=== PATIENT | female | born 1965 | race Caucasian/White ===

== ENCOUNTER 2025-05-23 08:38 | Day surgery (SDC) | payer SELFPAY ==
[2025-05-23] VITALS (8 sets, daily range): BP systolic 103–132; BP diastolic 72–100; PULSE 58–69; RESP 12–16; TEMP 36.1–36.4; O2SAT 96–100; BMI 32.7
--- OUTSIDE RECORDS SUMMARY | 2025-05-23 09:02 | XMS RPT_ITS | CCD ---
Author Organization [facility] Care Team Providers Care Mental Health Worker Name Role Phone Vikram Camp Attending Unavailable Ozzie Wyatt Referring Unavailable Ozzie Wyatt Primary Care Unavailable Vikram Camp Attending Unavailable Ozzie Wyatt Primary Care Unavailable Results Test Name Value Interpretation Reference Range Facil ity Surgery Visit Reporton 04-21 Surgery Visit Report [facility] [address] [place] [address] OFFICE VISIT Date of Service: 04/21/25 MR#: [id number] Acct: [id number] Name: ROSA POSEY Rep #: [id number] : 1965 Provider: Dr. Vikram hairston MD Age/Sex: 59/F Location: [facility] Status: Signed Intake Vital Signs 04/21/25 08:33 Height 5 ft 2 in Weight: 183 lb BMI 33.5 BP 132/85 H Blood Pressure Location Rt brachial Position Sitting Respiration 16 Intake Visit Reasons: COLONOSCOPY Chief Complaint: c-scope Corporate Officer Required: No Is patient in pain?: No Allergies No Known Allergies Allergy (Unverified 04/21/25 08:34) Medications ???Medication ???Instructions ???Recorded ???Confirmed ???Type atorvastatin 20 mg tablet 20 mg PO QDAY 04/21/25 04/21/25 Hi story cholecalciferol (vitamin D3) 25 25 mcg PO QDAY 04/21/25 04/21/25 H istory mcg (1,000 unit) capsule omega-3 fatty acids-fish oil 360 1 cap PO QDAY 04/21/25 04/21/25 Hi story mg-1,200 mg capsule (Fish Oil) Have you fallen in the past year?: No PFSH Medical History High cholesterol Change in bowel function DVT (deep vein thrombosis) in Social History (Updated 04/21/25 @ 08:33 by Hedy Rizo) Smoking Status: Never smoker alcohol intake: never HPI HPI HPI: Patient is a 59-year-old female here for bowel changes. She reports she has been having a lot more gas and frequency with bowel movements. She reports they are soft with no blood. She is not having any abdominal pain. She also reports she is having more gas. ROS General General: No weight change, appetite, fatigue, colon cancer, breast cancer or weakness HEENT HEENT: No difficulty swallowing, eye injury, eye surgery, swollen glands or hoarseness Endo Endocrine: No thyroid disease, diabetes mellitus, thyroid cancer, Hair loss, heat intolerance or cold intolerance Skin Skin: No rash or changing moles Breast Breast: No left breast lump, right breast lump, nipple discharge, breast pain, abnormal mammogram, abnormal US or breast enlargement Musc Musculoskeletal: No back problems, arthritis, rheumatoid arthritis, gout or joint pain Cardio Cardiovascular: No murmur, pacemaker, heart disease, atrial fibrillation, high blood pressure, heart attack, heart stent, palpitations, shortness of breath with exertion or chest pain Psych Psychiatric: No depression, anxiety or hearing voices Resp Respiratory: No shortness of breath, No sleep apnea, No cough, No COPD, No asthma, No emphysema and No wheezing Gastro Gastrointestinal: No abdominal pain, No nausea or vomiting, No diarrhea, No constipation, No blood in stool, No acid reflux, No hemorrhoids, No ulcers, No gallbladder problem and No black,tarry stools Mesfin Hematologic: No blood thinners, No blood disorders, No bleeding, No anemia and Yes blood clots Neuro Neurologic: No system reviewed and no additional complaints, except as documented, No as per HPI, No abnormal gait, No abnormal hearing, No abnormal movements, No abnormal speech, No behavioral changes, No burning sensations, No confusion, No convulsions, No disequilibrium, No dizziness, No localized weakness, No frequent falls, No headache(s), No lack of coordination, No loss of vision, No memory loss, No numbness, No other visual disturbances, No radicular pain, No restless legs, No sensory deficit, No syncope, No tingling, No tremor(s), No weakness and No other Exam Const General: cooperative Orientation: alert and oriented x3 HENMT Head: normal to inspection Neck Neck: normal visual inspection and full ROM Chest Chest palpation inspection: normal inspection of the chest Resp Effort Inspection: normal respiratory effort Auscultation: clear to auscultation bilaterally Cardio Rate: regular rate Rhythm: regular rhythm GI Inspection: non-distended Palpation: soft and nontender Skin General: no rashes or lesions noted Neuro General: patient alert and patient oriented x3 Extrem General: full ROM Psych Appearance: grossly normal Mental Status: mental status grossly normal Assessment and Plan Assessment and Plan (1) Change in bowel function: Status: Acute Plan: Patient has never had a colonoscopy before. I am unsure if I am going to find anything to explain her symptoms but I do recommend colonoscopy as she is 59 years old and has never had one. I explained endoscopy in detail to the patient. I explained the risks including but not limited to stroke or heart attack with anesthesia, perforation of the GI tract, bleeding, infection. I expl ained that any of these could necessitate further emergency surgery. The patient understands and all questions were answered sufficiently. The patient (more content not included)... Normal [facility] Encounters Encounter Date Encounter Type Care Provider Facility Start: 05-23-2025 Critical access hospital [facility]ity:[facility] Start: 04-21-2025 End: 04-21-2025 [facility] Facility:[facility] [place] [facility] [place] Payers Date Payer Category Payer Self-pay Unknown [id number] Unknown [id number] Summary Purpose Family History No Family History Records Found Advance Directives No Advanced Directives Records Found Additional Source Comments INFORMATION SOURCE (unrecogn ized section and content) DATE CREATED AUTHOR 04/23/2025 [facility] FOR RECORDS PERTAINING TO PATIENTS WHO ARE OR HAVE BEEN ENROLLED IN A CHEMICAL DEPENDENCY/SUBSTANCEABUSE PROGRAM, SOME INFORMATION MAY BE OMITTED. This clinical summary was aggregated from multiple sources. Caution should be exercised in using it in the provision of clinical care. This summary normalizes information from multiple sources, and as a consequence, information in this document may materially change the coding, format and clinical context of patient data. In addition, data may be omitted in some cases. CLINICAL DECISIONS SHOULD BE BASED ON THE PRIMARY CLINICAL RECORDS. [facility] [employer] [facility]. provides no warranty or guarantee of the accuracy or completeness of information in this document.
[2025-05-23] MEDS: Lactated Ringers 1,000 ML 15 ML IV (09:12)
--- NOTE | 2025-05-23 09:30 | PCM.PRE.AN2 ---
ASA Classification* ASA Classification ASA Classification: 2 Assessment & Plan Anesthesia* Anesthesia Assessment Anesthesia Assessment: Discussed sedation and/or anesthesia options, risks, benefits, and alternatives with patient/parents/legal guardian/POA. Questions invited. The patient/parents/legal guardian/POA seems to understand and agrees to proceed with anesthesia plan. Reviewed the physical assessment, medical history, allergy history and patient home medications list prior to surgery/procedure/anesthetic and documented any changes. Performed airway and anesthesia risk assessments. 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 When Was Last Pacemaker Check QUESTION #4 FULL TEXT: You/Your Family Experience fever (hyperthermia) with Anesthesia Last Oral Intake Last Oral intake: Last Oral Intake NPO since 03:00 05/23/25 09:09 Meds taken in AM with sips of No 05/23/25 09:09 water? Meds patient instructed to take am of surgery PONV PONV - executive business coach: PONV - executive business coach Female Yes 05/21/25 13:11 HX of Motion Sickness No 05/21/25 13:11 HX of N/V After Surgery No 05/21/25 13:11 Non-Smoker Yes 05/21/25 13:11 Duration of Surgery greater No 05/21/25 13:11 than 60 minutes Number of Risk Factors 2 05/21/25 13:11 PONV Score Moderate Risk 05/21/25 13:11 Height & Weight Height & Weight: Anesthesia: Height & Weight Height 5 ft 2 in 05/23/25 09:09 Weight: 81.1 kg 05/23/25 09:09 Body Mass Index (BMI) 32.7 05/23/25 09:09 Respiratory Assessment Respiratory Assessment - executive business coach: Respiratory Tract Infection Hx - executive business coach Hx Respiratory Tract Infection No 05/21/25 13:11 STOP Sleep Apnea STOP Sleep Apnea - executive business coach: STOP Sleep Apnea - executive business coach Hx Hypertension No 05/21/25 13:11 Hx Sleep Apnea No 05/21/25 13:11 CPAP BIPAP Do you snore loudly (louder No 05/21/25 13:11 than talking or can be heard Do you often feel tired/ No 05/21/25 13:11 fatigued/ sleepy during daytime? Has anyone observed you stop No 05/21/25 13:11 breathing during sleep? STOP Results Negative 05/21/25 13:11 QUESTION #5 FULL TEXT : Do you snore loudly (louder than talking or can be heard through closed doors)? Tobacco Use History Tobacco Use History - executive business coach: Tobacco Use History - executive business coach Tobacco Use Smoking Status Never smoker 05/21/25 13:11 Hx Tobacco Use No 05/21/25 13:11 Years Smoking Packs Smoked per Day Smoking Cessation Date was within the last 15 years Hx Smoking Cessation Date Hx Smoking Cessation Counseling Hematologic Medial History Hematologic Hx - executive business coach: Hematologic Medical Hx - publication manager Hx of Blood Transfusion No 05/21/25 13:11 Hx of Transfusion in last 3 No 05/21/25 13:11 Months Date of Last Transfusion (if within last 3 months) Ever experience any problems No 05/21/25 13:11 with transfusion(s)? Specify any problems Hx of Preganancy in last 3 No 05/21/25 13:11 Months Nurse Filling Out Transfusion VLEHMAN 05/21/25 13:11 & Questions: Date: 05/21/25 05/21/25 13:11 Time: 13:16 05/21/25 13:11 Patient unable to answer at this time (ie. confused, unrespo /Reproduction History /Reproductive History - executive business coach: /Reproductive Hx- executive business coach Hx Now No 05/21/25 13:11 Gestational Age (in weeks): EDC: Hx Hx Para Hx Section SAB No 05/21/25 13:11 Does the father of the baby or his family experience fever w Father of the baby Malignant Hypertension history comment Active Medications Active Medications: Current Medications Generic Name Dose Route Start Last Admin Trade Name Samq PRN Reason Stop Dose Admin Lactated Ringer's 1,000 mls @ 15 mls/hr 05/23/25 08:45 05/23/25 09:12 IV 15 mls/hr .Q48H DONN Administration PFSH Medical History Wears glasses Post-menopausal Superfic phlebitis-leg Restless legs Non-smoker History of edema High cholesterol Change in bowel function DVT (deep vein thrombosis) in Home Medications Medication Instructions Recorded Last Taken Type atorvastatin 20 mg tablet 20 mg PO QDAY 04/21/25 Unknown History cholecalciferol (vitamin D3) 25 25 mcg PO QDAY 04/21/25 Unknown History mcg (1,000 unit) capsule omega-3 fatty acids-fish oil 360 1 cap PO QDAY 04/21/25 Unknown History mg-1,200 mg capsule (Fish Oil) Allergy/AdvReac Type Severity Reaction Status Date / Time No Known Allergies Allergy Verified 05/23/25 09:05 Surgical History No pertinent past surgical history Social History Smoking Status: Never smoker alcohol intake: never Review of Systems (Anesthesia) ROS Narrative System reviewed and no additional complaints, except as documented.
--- NOTE | 2025-05-23 09:56 | PCM.HP.BLA ---
History and Physical Date of Admission: 05/23/25 Intake Vital Signs 04/21/2508:33 Height 5 ft 2 in Weight: 183 lb BMI 33.5 BP 132/85 H Blood Pressure Location Rt brachial Position Sitting Respiration 16 Intake Visit Reasons: COLONOSCOPY Chief Complaint: c-scope Case Monitor Required: No Is patient in pain?: No Allergies No Known Allergies Allergy (Unverified 04/21/25 08:34) Medications Medication Instructions Recorded Confirmed Type atorvastatin 20 mg tablet 20 mg PO QDAY 04/21/25 04/21/25 History cholecalciferol (vitamin D3) 25 25 mcg PO QDAY 04/21/25 04/21/25 History mcg (1,000 unit) capsule omega-3 fatty acids-fish oil 360 1 cap PO QDAY 04/21/25 04/21/25 History mg-1,200 mg capsule (Fish Oil) Have you fallen in the past year?: No PFSH Medical History High cholesterol Change in bowel function DVT (deep vein thrombosis) in Social History (Updated 04/21/25 @ 08:33 by Hedy Rizo) Smoking Status: Never smoker alcohol intake: never HPI HPI HPI: Patient is a 59-year-old female here for bowel changes. She reports she has been having a lot more gas and frequency with bowel movements. She reports they are soft with no blood. She is not having any abdominal pain. She also reports she is having more gas. ROS General General: No weight change, appetite, fatigue, colon cancer, breast cancer or weakness HEENT HEENT: No difficulty swallowing, eye injury, eye surgery, swollen glands or hoarseness Endo Endocrine: No thyroid disease, diabetes mellitus, thyroid cancer, Hair loss, heat intolerance or cold intolerance Skin Skin: No rash or changing moles Breast Breast: No left breast lump, right breast lump, nipple discharge, breast pain, abnormal mammogram, abnormal US or breast enlargement Musc Musculoskeletal: No back problems, arthritis, rheumatoid arthritis, gout or joint pain Cardio Cardiovascular: No murmur, pacemaker, heart disease, atrial fibrillation, high blood pressure, heart attack, heart stent, palpitations, shortness of breath with exertion or chest pain Psych Psychiatric: No depression, anxiety or hearing voices Resp Respiratory: No shortness of breath, No sleep apnea, No cough, No COPD, No asthma, No emphysema and No wheezing Gastro Gastrointestinal: No abdominal pain, No nausea or vomiting, No diarrhea, No constipation, No blood in stool, No acid reflux, No hemorrhoids, No ulcers, No gallbladder problem and No black,tarry stools Mesfin Hematologic: No blood thinners, No blood disorders, No bleeding, No anemia and Yes blood clots Neuro Neurologic: No system reviewed and no additional complaints, except as documented, No as per HPI, No abnormal gait, No abnormal hearing, No abnormal movements, No abnormal speech, No behavioral changes, No burning sensations, No confusion, No convulsions, No disequilibrium, No dizziness, No localized weakness, No frequent falls, No headache(s), No lack of coordination, No loss of vision, No memory loss, No numbness, No other visual disturbances, No radicular pain, No restless legs, No sensory deficit, No syncope, No tingling, No tremor(s), No weakness and No other Exam Const General: cooperative Orientation: alert and oriented x3 HENHI Head: normal to inspection Neck Neck: normal visual inspection and full ROM Chest Chest palpation & inspection: normal inspection of the chest Resp Effort & Inspection: normal respiratory effort Auscultation: clear to auscultation bilaterally Cardio Rate: regular rate Rhythm: regular rhythm GI Inspection: non-distended Palpation: soft and nontender Skin General: no rashes or lesions noted Neuro General: patient alert and patient oriented x3 Extrem General: full ROM Psych Appearance: grossly normal Mental Status: mental status grossly normal Assessment and Plan Assessment and Plan (1) Change in bowel function: Status: Acute Plan: Patient has never had a colonoscopy before. I am unsure if I am going to find anything to explain her symptoms but I do recommend colonoscopy as she is 59 years old and has never had one. I explained endoscopy in detail to the patient. I explained the risks including but not limited to stroke or heart attack with anesthesia, perforation of the GI tract, bleeding, infection. I explained that any of these could necessitate further emergency surgery. The patient understands and all questions were answered sufficiently. The patient wishes to proceed with procedure. Vikram Camp MD Pager: [facility] [address] [place] [address], [address] [place] [address] Office: I have examined the patient and the H&P has been reviewed. There are no clinical changes since date of exam.
[2025-05-23] MEDS: Lidocaine 1% (5 ml sdv) 5 ML Vial IV (10:07)
--- NOTE | 2025-05-23 10:25 | PCM.POST.ANE ---
Anesthesia: Postop Eval I Current Vital Signs Temperature: 97 F Pulse Rate: 69 Blood Pressure: 132/100 Respiratory Rate: 12 Pulse Ox: 99 Oxygen Delivery Method: Room Air Assessment Airway patent: Yes Spontaneous unlabored respirations: Yes Mental status: Awake and Calm nausea: No Vomiting: No Anesthesia Complication: No Fluid Hydration Crystalloid volume administer (ml): 200 Total IV fluid infused: 200 Progress Note Anesthesia document: Postop Eval 1 completed: Yes
--- NOTE | 2025-05-23 10:27 | OP.PROVAT_ITS ---
05/23/2025 Ozzie Wyatt Do Re : Colonoscopy procedure for Nayeli Babin Dear Yoselin This procedure was performed on Friday, May 23, 2025. My impressions and recommendations are as follows: Impressions : - The entire examined colon is normal on direct and retroflexion views. - No specimens collected. Recommendations : - Discharge patient to home. - Resume previous diet. - Continue present medications. - Repeat colonoscopy in 10 years for screening purposes. My findings are described in the full procedure note, which is enclosed. If I can be of further assistance, please feel free to contact me at Doctor phone number(s): , Work: . Sincerely, Vikram Camp MD 05/23/2025 10:26:44 AM This report has been signed electronically.
--- NOTE | 2025-05-23 10:27 | OP.COLON_ITS ---
Patient Name: Nayeli Babin Procedure Date: 05/23/2025 10:03 AM Date of : 1965 Age: 59 Procedure: Colonoscopy Indications: Change in bowel habits Providers: Vikram Camp MD Referring MD: Ozzie Wyatt Do Medicines: Propofol per Anesthesia Patient Profile: This is a 59 year old female. Refer to note in patient chart for documentation of history and physical. Last Colonoscopy: none. The patient's first colonoscopy is today. Complications: No immediate complications. Procedure: Pre-Anesthesia Assessment: - Prior to the procedure, a History and Physical was performed, and patient medications and allergies were reviewed. The patient's tolerance of previous anesthesia was also reviewed. The risks and benefits of the procedure and the sedation options and risks were discussed with the patient. All questions were answered, and informed consent was obtained. Prior Anticoagulants: The patient has taken no anticoagulant or antiplatelet agents. After reviewing the risks and benefits, the patient was deemed in satisfactory condition to undergo the procedure. After I obtained informed consent, the scope was passed under direct vision. Throughout the procedure, the patient's blood pressure, pulse, and oxygen saturations were monitored continuously. The pediatric colonoscope was introduced through the anus and advanced to the cecum, identified by appendiceal orifice and ileocecal valve. The colonoscopy was performed without difficulty. The patient tolerated the procedure well. The quality of the bowel preparation was good. The ileocecal valve, appendiceal orifice, and rectum were photographed. Scope In: 10:14:25 AM Scope Withdrawal Time 0 hours 6 minutes 34 seconds Scope Out: 10:23:57 AM Total Procedure Duration Time 0 hours 9 minutes 32 seconds Findings: The entire examined colon appeared normal on direct and retroflexion views. Non-bleeding internal hemorrhoids were found during retroflexion. The hemorrhoids were Grade II (internal hemorrhoids that prolapse but reduce spontaneously). Impression: - The entire examined colon is normal on direct and retroflexion views. - No specimens collected. Recommendation: - Discharge patient to home. - Resume previous diet. - Continue present medications. - Repeat colonoscopy in 10 years for screening purposes. Procedure Code(s): --- Professional --- 50515, Colonoscopy, flexible; diagnostic, including collection of specimen(s) by brushing or washing, when performed (separate procedure) Diagnosis Code(s): --- Professional --- R19.4, Change in bowel habit CPT copyright 2021 [employer]. All rights reserved. The codes documented in this report are preliminary and upon forming machine tender review may be revised to meet current compliance requirements. Vikram Camp MD 05/23/2025 10:26:44 AM This report has been signed electronically. Number of Addenda: 0 Note Initiated On: 05/23/2025 10:03 AM
--- NOTE | 2025-05-23 10:38 | POSTOPAN2_ITS ---
Anesthesia Postop Eval I Sum Postop Eval Completion status Anesthesia document: Postop Eval 1 completed: Yes Anesthesia Postop Eval I Summary Anesthesia Postop Eval I Summary: Anesthesia Postop Eval I: Assessment Summary Airway patent Yes 05/23/25 10:26 ENAMEL CRACKER.MDOT Spontaneous unlabored Yes 05/23/25 10:26 ENAMEL CRACKER.MDOT respirations Mental status Awake,Calm 05/23/25 10:26 ENAMEL CRACKER.MDOT nausea No 05/23/25 10:26 ENAMEL CRACKER.MDOT Vomiting No 05/23/25 10:26 ENAMEL CRACKER.MDOT Anesthesia Postop Eval I: Fluid Summary Crystalloid volume administer 200 05/23/25 10:26 ENAMEL CRACKER.MDOT (ml) Colloids volume administered ( ml) Blood Product volume administered (ml) Total IV fluid infused 200 05/23/25 10:26 ENAMEL CRACKER.MDOT Anesthesia Postop Eval I: Summary Notes Anesthesia Complication No 05/23/25 10:26 ENAMEL CRACKER.MDOT Anesthesia Complication Comment: Post-operative progress note Anesthesia: Postop Eval II Evaluation Mental status: Awake and Calm Pain Level: 0 nausea: No Vomiting: No Complications Anesthesia Complication: No
--- NOTE | 2025-05-23 10:38 | PCM.POSTANE2 ---
Anesthesia Postop Eval I Sum Postop Eval Completion status Anesthesia document: Postop Eval 1 completed: Yes Anesthesia Postop Eval I Summary Anesthesia Postop Eval I Summary: Anesthesia Postop Eval I: Assessment Summary Airway patent Yes 05/23/25 10:26 CLINICAL CONSULTANT.MDOT Spontaneous unlabored Yes 05/23/25 10:26 CLINICAL CONSULTANT.MDOT respirations Mental status Awake,Calm 05/23/25 10:26 CLINICAL CONSULTANT.MDOT nausea No 05/23/25 10:26 CLINICAL CONSULTANT.MDOT Vomiting No 05/23/25 10:26 CLINICAL CONSULTANT.MDOT Anesthesia Postop Eval I: Fluid Summary Crystalloid volume administer 200 05/23/25 10:26 CLINICAL CONSULTANT.MDOT (ml) Colloids volume administered ( ml) Blood Product volume administered (ml) Total IV fluid infused 200 05/23/25 10:26 CLINICAL CONSULTANT.MDOT Anesthesia Postop Eval I: Summary Notes Anesthesia Complication No 05/23/25 10:26 CLINICAL CONSULTANT.MDOT Anesthesia Complication Comment: Post-operative progress note Anesthesia: Postop Eval II Evaluation Mental status: Awake and Calm Pain Level: 0 nausea: No Vomiting: No Complications Anesthesia Complication: No
== END 2025-05-23 11:26 | disposition home or self-care (01) ==
LOC: EN 08:41 → AC 08:43
PROVIDERS: PCP Physician Assistant; Referring Provider Physician Assistant; Visit Provider Surgery
PROC: 0DJD8ZZ Inspection of Lower Intestinal Tract, Via Natural or Artificial Opening Endoscopic (ICD-10-PCS; CPT 45378; principal; 2025-05-23 09:55)
DX: K64.1 Second degree hemorrhoids (principal); R19.4 Change in bowel habit; E78.00 Pure hypercholesterolemia, unspecified; Z86.718 Personal history of other venous thrombosis and embolism; Z79.899 Other long term (current) drug therapy
CPT/HCPCS: 45378